=== PATIENT | male | born 1980 | race Caucasian/White ===

== ENCOUNTER → 2024-02-18 16:04 | Outpatient (REF) | payer OTHER, SELFPAY | LOC: RAD 16:04 | PROVIDERS: ATTENDING PHYSICIAN Nurse Practitioner Family | DX: M89.8X1 Other specified disorders of bone, shoulder (principal); R06.02 Shortness of breath; M25.512 Pain in left shoulder | CPT/HCPCS: 71046; 72110; 73010; 73030 ==

== ENCOUNTER 2025-01-27 12:41 | Emergency (ER) | payer OTHER, SELFPAY ==
[2025-01-27 12:45] VITALS: BP 125/80
--- NOTE | 2025-01-27 16:03 | ED.GENMED ---
History of Present Illness
General
Chief Complaint: Skin Surface Trauma
Source: patient
Exam Limitations: none
Time Seen by Provider: 01/27/25 14:48
Nursing documentation reviewed up to this point in time: agreed with
History of Present Illness
History of Present Illness:
Patient is a 44-year-old male who presents to the ER complaining of right finger laceration. 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 He is unsure was last tetanus which is what prompted him to come to the ER. He denies any
pain. No other injuries.
Past History
Past History
ED Past Medical History: None; Negative Asthma, HTN, Hypercholesterolemia or NIDDM
ED Past Surgical History: None
Social History
Tobacco: Non-smoker
Alcohol: None
Drug: None
Personal: Single
Living: alone
Review of Systems
Review of Systems
Allergies reviewed?: Yes
All Other Systems: ROS reviewed and negative except as documented in HPI and ROS
Constitutional: Reports no symptoms
Musculoskeletal: Reports other (Right middle finger laceration)
Skin: Reports other (See above)
Neurological: Reports no symptoms
Psychiatric: Reports no symptoms
Phy Exam
General Physical Exam
General Presentation: no apparent distress
General age: appears stated age
General Skin: warm and dry
General Habitus: normal
General Mental: alert
General Hydration: appears well hydrated
Neurological Exam
Neurological Exam: alert and oriented x3
Musculoskeletal Exam
Musculoskeletal Exam: other (Right upper extremity strong pulses right middle finger with half a centimeter superficial flap laceration no bony tenderness full flexion extension normal distal sensation)
Skin Exam
Skin Exam: normal color and warm/dry
Psychiatric Exam
Psychiatric Exam: normal mood/affect
Course
Orders/Labs/Results
Orders:
Orders
01/27/25 16:01
Tetanus/Diphth/Acelpertussis [Adacel] 0.5 ml IM .ONCE ONE
Vital Signs
Initial and Last Documented VS:
Initial Vital Signs
Temp Pulse Resp BP Pulse Ox
97.9 F 68 16 125/80 99
01/27/25 12:45 01/27/25 12:45 01/27/25 12:45 01/27/25 12:45 01/27/25 12:45
Last Documented Vital Signs
Temp Pulse Resp BP Pulse Ox
97.9 F 68 16 125/80 99
01/27/25 12:45 01/27/25 12:45 01/27/25 12:45 01/27/25 12:45 01/27/25 12:45
MDM/Problems Addressed
Differential Diagnosis Includes:
Not limited to laceration
MDM/Problems Addressed:
Patient with a superficial flap laceration does not require repair wound was cleansed and irrigated with normal saline by nurse tetanus was updated wound care reviewed.
*Critical Care Note
Total Time (30-74mins, 75-104mins- exclusive of procedures): Not Applicable
ED Attending Note
-
Portions of this chart may have been created with voice recognition software.� Occasional wrong word or��sound alike� substitutions may have occurred due to the inherent limitations of voice recognition software.
Discharge Plan
Departure
Patient Disposition: Home (Routine Discharge)
Date of Disposition: 01/27/25
Time of Disposition: 16:01
Patient with high blood pressure during this ER visit?: No
Condition: Fair
Covid-19: Not Applicable
Discharge Problem:
Finger laceration
Instructions: Wound Care (DC)
Prescriptions:
No Action
clindamycin HCl 150 MG capsule
300 mg PO TID Qty: 30 0RF
tramadol 50 MG tablet
50 mg PO Q6HPRN PRN (Reason: severe pain) Qty: 12 0RF
Referrals:
Divine Spence MD [Family Provider] -
Activity Restrictions/Additional Instructions:
As document keeping clean and dry. Wash twice no soap water pat dry apply small layer of antibiotic ointment to the area. See family doctor in the next 2 days return if any worsening of symptoms. You are up-to-date on tetanus vaccine here in the
ER.
Interventions
Interventions:
*Risk Screen - Suicide Last Done: 01/27/25 12:45
*General Assessment Last Done: 01/27/25 12:45
*Neglect/Abuse Screening Last Done: 01/27/25 12:45
*ED COVID-19 Vaccine History Last Done: 01/27/25 13:32
ED-Skin Assessment Last Done: 01/27/25 13:32
Discharge Date and Time
Print Language: ARMENIAN
[2025-01-27] MEDS: ADACEL 0.5 ML IM (16:11)
== END 2025-01-27 16:13 | disposition home or self-care (01) ==
LOC: EMR 12:41
PROVIDERS: EMERGENCY PHYSICIAN Emergency Medicine; FAMILY PHYSICIAN Family Medicine
DX: S61.212A Laceration without foreign body of right middle finger without damage to nail, initial encounter (principal); W45.8XXA Other foreign body or object entering through skin, initial encounter; Z23 Encounter for immunization
CPT/HCPCS: 90471; 99282; 90715